=== PATIENT | male | born 1985 | race Two or more races ===

== ENCOUNTER → 2025-04-15 | Outpatient (CLI) | payer MEDICAID, SELFPAY ==
--- NOTE | 2025-04-15 10:41 | XR_ITS ---
Examination: Lumbar spine 7 views TECHNIQUE: AP, lateral, standing lateral flexion, standing lateral extension, coned lateral lower lumbar spine, DAVIS, LUXEMBOURGER lumbar spine 7 views Date and time: April 15, 2025 1050 hours INDICATIONS: Low back pain 20 years worse the last 6 months FINDINGS: No lumbar fracture Grade 2 spondylolisthesis L5 on S1, 11 mm anterolisthesis L5 on S1 both in flexion and extension Decreased range of motion between flexion and extension No lumbar fracture Likely calcified mesenteric lymph nodes Intact pedicles Moderate disc narrowing L5-S1 IMPRESSION: Grade 2 spondylolisthesis L5 on S1 with moderate degenerative disc disease at this level
== END | disposition home or self-care (01) ==
PROVIDERS: PCP Nurse Practitioner; Referring Provider Nurse Practitioner; Visit Provider Nurse Practitioner
DX: M43.17 Spondylolisthesis, lumbosacral region (principal); M51.370 Other intervertebral disc degeneration, lumbosacral region with discogenic back pain only
CPT/HCPCS: 72114

== ENCOUNTER 2025-05-17 17:16 | Emergency (ER) | payer MEDICAID, SELFPAY ==
[2025-05-17 17:18] VITALS: BMI 29.7
[2025-05-17 17:34] VITALS: BP 117/83; PULSE 79; RESP 16; TEMP 36.8; O2SAT 99
--- NOTE | 2025-05-17 17:39 | EKG_ITS ---
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
--- NOTE | 2025-05-17 17:39 | XR_ITS ---
Examination: CT brain head without contrast. 2-D sagittal coronal reconstructions Date and time of exam: May 17, 2025 1941 hours INDICATIONS: Headaches facial numbness beginning 1 week ago COMPARISON: June 15, 2022 CTDI: vol (mGy): 50.1 DLP: (mGycm): 1053 Technique: Multiple CT axial sections of the brain have been obtained, 5 mm slice thickness. Contrast has not been administered. 2-D sagittal, coronal reconstructions have been obtained Low dose protocols were performed. One or more of the following dose reduction techniques were used; automated exposure control, adjustment of the mA and/or KV according to patient size, use of iterative reconstruction technique. Findings: No significant ventricular enlargement. Intra-axial or extra-axial hemorrhage density is not seen. No mass effect or midline shift Basal cisterns are not remarkable. Fourth ventricle is midline. Cranial vault intact. Impression: Negative for acute hemorrhage, mass effect or midline shift As clinically warranted, brain MRI follow-up would best assess for demyelinating disease
--- NOTE | 2025-05-17 17:40 | PD.EDRME ---
Rapid Medical Screening Exam RME Arrival date/time: 05/17/25 17:16 39-year-old male with no known medical history presents to the emergency room with a chief complaint of a headache, dizziness, facial numbness x 1 week I have greeted and performed a focused initial assessment of this patient. A comprehensive ED assessment and evaluation of the patient, analysis of all test results, and completion of the medical decision making process will be conducted by additional ED providers. Chief Complaint: Headache Time Seen by Provider: 05/17/25 17:34 Vital signs: Vital Signs Temperature 98.2 F 05/17/25 17:34 Pulse Rate 79 05/17/25 17:34 Respiratory Rate 16 05/17/25 17:34 Blood Pressure 117/83 05/17/25 17:34 Pulse Oximetry (%) 99 05/17/25 17:34 Oxygen Delivery Method Room Air 05/17/25 17:34 Vital signs reviewed by provider: Yes
[2025-05-17 18:03] LABS: Basophils # (Auto) 0.1 Thou/mm3 (0.0-0.2); Basophils % (Auto) 1 % (0-2.5); Eosinophils # (Auto) 0.2 Thou/mm3 (0.0-0.5); Eosinophils % (Auto) 2 % (0-10); Hematocrit 42.0 % (41.0-53.0); Hemoglobin 14.2 g/dL (13.5-16.0); Immature Granulocytes Auto 0.02 Thou/mm3 (0.00-0.00); Lymphocytes # (Auto) 1.9 Thou/mm3 (1.0-4.8); Lymphocytes % (Auto) 21 % (10-50); Mean Corpuscular HGB Conc 33.8 g/dl (31.0-37.0); Mean Corpuscular Hemoglobin 29.2 pg (25.0-35.0); Mean Corpuscular Volume 86 fL (80-100); Monocytes # (Auto) 0.5 Thou/mm3 (0.0-0.8); Monocytes % (Auto) 5 % (0-12); Neutrophils # (Auto) 6.3 Thou/mm3 (1.8-7.7); Neutrophils % (Auto) 71 % (37-80); Nucleated Red Blood Cell # 0.00 Thou/mm3 (0.00-0.00); Nucleated Red Blood Cell % 0 /100 WBC (0); Platelet Count 267 Thou/mm3 (140-440); RDW Standard Deviation 38.2 fL (35.1-43.9); Red Blood Count 4.87 Miln/mm3 (4.50-5.90); White Blood Count 8.9 Thou/mm3 (3.8-10.6)
[2025-05-17 18:22] LABS: Alanine Aminotransferase 34 U/L (10-49); Albumin, Serum 5.0 gm/dL (3.5-5.0); Albumin/Globulin Ratio 1.9 (1.2-2.2); Alkaline Phosphatase 104 U/L (46-116); Anion Gap 10 (7-16); Aspartate Amino Transferase 42 U/L (0-34); BUN/Creatinine Ratio 15 Ratio (12-20); Bilirubin,Total 0.3 mg/dL (0.3-1.2); Blood Urea Nitrogen 12 mg/dL (9-23); Calcium 9.5 mg/dL (8.3-10.6); Calcium (Corrected) 9.5 mg/dL (8.5-10.1); Carbon Dioxide 25.9 mMol/L (20.0-31.0); Chloride 106 mMol/L (98-107); Creatinine (Component) 0.8 mg/dL (0.6-1.3); Estimated Creatinine Clearance 131.3 mL/min (>60); Globulin 2.7 gm/dL (2.3-3.5); Glucose 95 mg/dL (74-106); Magnesium 1.9 mg/dL (1.6-2.6); Osmolality,Calculated 282 (275-295); Potassium 3.8 mMol/L (3.4-5.1); Sodium 142 mMol/L (136-145); Total Protein 7.7 gm/dL (5.7-8.2); Troponin I < 0.002 ng/mL (0.0-0.045); eGFR > 60 See Note
[2025-05-17 18:25] LABS: INR 1.0 (0.9-1.3); Partial Thromboplastin Time 26.8 Seconds (22.0-36.0); Prothrombin Time 10.6 Seconds (9.0-12.2)
[2025-05-17 18:27] LABS: B-Type Natriuretic Peptide < 20 pg/mL (0-100)
[2025-05-17 19:27] LABS: Collection Type, Urine Clean Catch; Squamous Epithelial Cell,Urine 0 /hpf (0-5)
[2025-05-17 19:50] LABS: Bilirubin,Urine Negative (Negative); Blood,Urine 1+ (Negative); Clarity,Urine Clear (Clear/Hazy); Color,Urine Lt-Yellow (Lt Yel-Yel); Culture Indicated,Urine Not Indicated; Glucose, Urine Negative (Negative); Ketones,Urine Negative (Negative); Leukocyte Esterase,Urine Negative (Negative); Nitrite,Urine Negative (Negative); PH,Urine 5.5 (5.0-7.0); Protein,Urine Negative (Neg - Trace); RBC,Urine 3 /hpf (0-3); Specific Gravity,Urine 1.030 (1.001-1.035); Urobilinogen,Urine Negative mg/dL (0.0-1.0); WBC,Urine 1 /hpf (0-5)
--- NOTE | 2025-05-17 22:57 | EDNOTE_ITS ---
ED Headache RME/HPI General Chief Complaint: Headache Stated Complaint: FACE FEELS NUMBNESS AND HEADACHE FOR 1 WK Time Seen by Provider: 05/17/25 17:34 Arrival date/time: 05/17/25 17:16 RME / HPI RME / HPI Narrative: 05/17/25 17:16 39-year-old male with no known medical history presents to the emergency room with a chief complaint of a headache, dizziness, facial numbness x 1 week I have greeted and performed a focused initial assessment of this patient. A comprehensive ED assessment and evaluation of the patient, analysis of all test results, and completion of the medical decision making process will be conducted by additional ED providers. Dr. Corrigan?s Main ED Evaluation: 39yo male with no significant past medical history presents to the ED for a chief complaint of a headache x 1 week. Patient reports his headache has caused him to have bilateral jaw pain. He denies any dizziness, lightheadedness, nausea, vomiting, photophobia, or any other associated symptoms. 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 He is not on any daily medications. NKA. Related Data Previous Rx's ?Medication ?Instructions ?Recorded cetirizine 10 mg tablet 10 mg PO QDAY #14 tabs 01/21 Allergies Allergy/AdvReac Type Severity Reaction Status Date / Time No Known Allergies Allergy Verified 05/17/25 17:21 Review of Systems Review of Systems Systems Reviewed: All systems reviewed, normal except as documented Past Medical History Social History SMOKING STATUS: Never smoker SUBSTANCE USE: does not use ED Exam Narrative Physical exam: Generally patient is alert in no obvious distress, head is normocephalic atraumatic, eyes pupils equal round reactive to light, face shows no facial asymmetry, neck shows no bruits, heart regular rate and rhythm, lungs clear to auscultation equal laterally, neurologic exam no facial asymmetry. No problems with speech. No ataxia. No focal motor or sensory deficits. Course Quality Measures none Orders Category Date Time Status EKG (ED ONLY) *Do not use* NOW Care 05/17/25 17:[address] head/brain wo con Stat Exams 05/17/25 17:39 Completed EKG (ED Only) Stat Exams 05/17/25 17:39 Draft B-Type Natriuretic Peptide Stat Lab 05/17/25 17:48 Completed CBC Stat Lab 05/17/25 17:48 Completed Comprehensive Metabolic Panel Stat Lab 05/17/25 17:48 Completed Magnesium Stat Lab 05/17/25 17:48 Completed Partial Thromboplastin Time Stat Lab 05/17/25 17:48 Completed Prothrombin Time with INR Stat Lab 05/17/25 17:48 Completed Troponin I Stat Lab 05/17/25 17:48 Completed Urinalysis, C/S if Indicated Stat Lab 05/17/25 19:20 Completed Vital Signs Vital signs: Vital Signs Temperature 98.2 F 05/17/25 17:34 Pulse Rate 79 05/17/25 17:34 Respiratory Rate 16 05/17/25 17:34 Blood Pressure 117/83 05/17/25 17:34 Pulse Oximetry (%) 99 05/17/25 17:34 Oxygen Delivery Method Room Air 05/17/25 17:34 Headache MDM Narrative MDM Narrative:: Scribe Attestation: 05/17/25 - Dena Simons am scribing for and in the presence of Dr. Corrigan. Patient was here almost 6 hours prior to my evaluation. Labs were protocoled. There was no abnormality. EKG shows normal sinus rhythm without ischemic change. CAT scan of the brain was negative. Patient has no neurologic deficits. I do not believe this patient to be suffering from a stroke. Patient is to take Tylenol and ibuprofen as needed for pain. Follow-up with his doctor as needed for further treatment and evaluation. Patient data External records reviewed:: [facility] previous records (Per chart review, patient has no relevant previous ED visits.) Clinical information provided by:: patient Social determinants that could affect healthcare access:: none Patient has the following chronic illnesses:: none How is presenting disease/condition affected by chronic disease/condition?: no chronic disease Evaluation data The following diagnostics were reviewed and interpreted by me:: lab results, radiology exam(s) and EKG tracing(s) Lab and/or radiology exams considered but not ordered:: none Interpretation Summary: [facility] Report Signed Patient: JANEEN RODRIGUEZ Record#: [id number] Birthdate: 1985 Age/Sex: 39 / M Location: [facility] Attending Dr: Ordering Physician: Benjamin Diego Date of Service: 05/17/25 Procedure(s): CT head/brain wo con Accession Number(s): [id number] cc: Benjamin Diego; José Miguel Bullard MD~ Examination: CT brain head without contrast. 2-D sagittal coronal reconstructions Date and time of exam: May 17, 2025 1941 hours INDICATIONS: Headaches facial numbness beginning 1 week ago COMPARISON: June 15, 2022 CTDI: vol (mGy): 50.1 DLP: (mGycm): 1053 Technique: Multiple CT axial sections of the brain have been obtained, 5 mm slice thickness. Contrast has not been administered. 2-D sagittal, coronal reconstructions have been obtained Low dose protocols were performed. One or more of the following dose reduction techniques were used; automated exposure control, adjustment of the mA and/or KV according to patient size, use of iterative reconstruction technique. Findings: No significant ventricular enlargement. Intra-axial or extra-axial hemorrhage density is not seen. No mass effect or midline shift Basal cisterns are not remarkable. Fourth ventricle is midline. Cranial vault intact. Impression: Negative for acute hemorrhage, mass effect or midline shift As clinically warranted, brain MRI follow-up would best assess for demyelinating disease Dictated By: José Miguel Bullard MD Signed By: <Electronically signed by José Miguel Bullard MD in OV> 05/17/252022 Medications / Prescriptions Medications or Prescriptions considered but not ordered:: none Medication administrations:: see above, if any Consultations Consultation(s) initiated? (list below): No Diagnosis Differential diagnosis headache: other (See MDM) Most likely diagnosis given after review of the tests above:: see clinical impression below Admission Indicated Admission indicated?: not indicated Admission Request Was there a request for admission?: No Disposition Plan Disposition Plan: Discharge Discharge Attestation Discharge Attestation: The patient and all family members were given an opportunity to ask questions and understood the discharge instructions. Discharge instructions specifically effects, indications for sooner follow up or return to the emergency department, and the expected course of current diagnosis. Patient condition: Stable Discharge Plan Plan Patient Disposition: HOME (Self Care) Prescriptions/Referrals Prescriptions/Med Rec: No Action cetirizine 10 mg tablet 10 mg PO QDAY Qty: 14 0RF Referrals: No Primary/Family,Physician [Primary Care Provider] - In 1 week Problem List Clinical Impression: Headache Patient/Caregiver Discharge Instructions Education Materials: Self-Care for Headaches Additional Instructions: You may take Tylenol and/or ibuprofen as needed for pain. Follow-up with your doctor as needed for further treatment and evaluation. Print Language: [employer] Stand Alone Forms: [employer]ing Award Info., Patient Portal Info Letter
[2025-05-17 23:18] VITALS: BP 119/73; PULSE 76; RESP 18; TEMP 36.8; O2SAT 98
== END 2025-05-18 00:30 | disposition home or self-care (01) ==
PROVIDERS: Nurse Practitioner Family; Emergency Provider Emergency Medicine
DX: R51.9 Headache, unspecified (principal)
CPT/HCPCS: 36415; 70450; 80053; 81001; 83735; 83880; 84484; 85025; 85610; 85730; 93005; 99282